=== PATIENT | male | born 1950 | race Caucasian/White ===

== ENCOUNTER 2023-08-14 01:44 | Day surgery (SDC) | payer OTHER, SELFPAY ==
[2023-08-02 08:58] VITALS: BMI 25.9
[2023-08-14 10:11] VITALS: BP 136/89; PULSE 86; RESP 18; TEMP 36.5; O2SAT 98
[2023-08-14] MEDS: LACTATED RINGERS 1,000 ML 150 ML IV CONT (10:23)
--- NOTE | 2023-08-14 10:47 | PM.HPGS ---
History of Present Illness History of Present Illness Consent: Risks, benefits, and alternatives have been discussed and questions answered. Patient agrees to proceed with procedure. Chief complaint: other fecal abnormalities Narrative: Corey Underwood Jr. is a 73 year old male here for first colonoscopy, had + cologuard Review of Systems Constitutional: Constitutional: Denies headache(s) and Denies weakness Eyes: Eyes: Denies blurry vision ENT: Reports Normal hearing present, Denies headache(s) and Denies neck pain Cardiovascular: Cardiovascular: Denies chest pain and Denies dyspnea Respiratory: Respiratory: Denies dyspnea Gastrointestinal: Gastrointestinal: Reports no additional gastrointestinal complaints Genitourinary: Genitourinary: Denies dysuria Musculoskeletal: Musculoskeletal: Denies neck pain Integumentary/Breasts: Skin/Breast: Denies dry skin Neurologic: Reports Normal hearing present, Denies headache(s) and Denies weakness Psychiatric: Psychiatric: Denies anxiety Endocrine: Endocrine: Denies change in body appearance Hematologic/Lymphatic: Hematologic/Lymphatic: Denies easy bleeding Allergic/Immunologic: Allergic/Immunologic: Denies urticaria PMFSH Past Medical History Medical History (Updated 08/14/23 @ 10:48 by Klaus Grewal MD) HTN (hypertension) Positive colorectal cancer screening using Cologuard test Family History Family History Father Family history of cardiovascular disease Other Diabetes mellitus Family history of arthritis Hypertension Social History Social History Smoking packs per day: 3 Smoking cigarettes per day: 60.0 Years smoked: 30 Smoking pack-years: 90.00 Smoking status: Former smoker Tobacco type: cigarettes Second hand tobacco smoke exposure: Yes Smoking end date: 10/15/01 Alcohol intake: current Substance use: never Substance use type: does not use Lack of Transportation: No Lack of Food: Never True Current Housing: I Have Housing Concerned About Future Housing: No Difficulty Paying Gas/Electric Bills: No Difficulty Paying for Meds: No Currently Unemployed: No Education: High School Diploma/GED Difficulty w/ Childcare or Family Care: No Living arrangements: with family Spiritual care concerns: No Meds Home Medications and Allergies Home Medications Medication Instructions Recorded Confirmed Type tramadol 50 mg tablet 50 mg PO Q6H PRN pain #60 tabs 11/16/22 10/19/23 Rx rosuvastatin 5 mg tablet See Rx Instructions .Route 04/03/23 08/02/23 Rx .COMPLEX #45 tabs meloxicam 7.5 mg tablet See Rx Instructions .Route 04/09/23 08/02/23 Rx .COMPLEX #180 tabs lisinopril 5 mg tablet See Rx Instructions .Route 04/19/23 08/02/23 Rx .COMPLEX #90 tabs meclizine 25 mg tablet 25 mg PO TID PRN Dizziness 05/29/23 08/02/23 History Glucosamine Chondroitin 1 cap PO DAILY 08/02/23 08/02/23 History rgtxqajh-zj-mmrax 300 mcg-K 60 1 tablet PO DAILY 08/02/23 08/02/23 History mcg-lycop 600 mcg-lutein 300 mcg tablet (Centrum Silver Men) naproxen sodium 220 mg capsule 220 mg PO BID PRN Pain 08/02/23 08/02/23 History (Aleve) omega 2-vyz-vjd-fish oil 1,000 mg 1 cap PO DAILY 08/02/23 08/02/23 History (120 mg-180 mg) capsule (Fish Oil) tamsulosin 0.4 mg capsule See Rx Instructions .Route 08/06/23 08/14/23 Rx .COMPLEX #90 caps Allergies Allergy/AdvReac Type Severity Reaction Status Date / Time ezetimibe [From Zetia] AdvReac Intermediate leg pain Verified 08/14/23 10:10 Walhlkp-CAO-WjL Reductase AdvReac Intermediate LEG PAIN Verified 08/14/23 10:10 Inhibitor [Vpoldbd-Gab-Qcg Reductase Inhibitor] Vital Signs Vital Signs - 24 hr 08/14/23 10:11 Temperature 97.7 F Pulse Rate 86 Respiratory Rate 18 Blood Pressure 136/89 Pulse Oximetry 98 Oxyge
--- NOTE | 2023-08-14 10:49 | WPDANESEPPF ---
Anes - Initial Pre Proc Eval Procedure: Operation Date: 08/14/23 11:00 Proposed Procedures p Colonoscopy - Klaus Grewal MD Date/Time: 08/14/23 10:49 Surgeon: Klaus Grewal MD Pre Op Diagnosis: other fecal abnormalities Patient Data Age: 73 Gender: M Height: 1.7 m Weight: 76.1 kg Last Vital Signs Temp 97.7 F 08/14/23 10:11 Pulse 86 08/14/23 10:11 Resp 18 08/14/23 10:11 BP 136/89 08/14/23 10:11 Pulse Ox 98 08/14/23 10:11 O2 Del Method Room Air 08/14/23 10:11 Allergies Allergy/AdvReac Type Severity Reaction Status Date / Time ezetimibe [From Zetia] AdvReac Intermediate leg pain Verified 08/14/23 10:10 Oyvqjtr-YWP-AdR Reductase AdvReac Intermediate LEG PAIN Verified 08/14/23 10:10 Inhibitor [Wxuydyk-Erd-Tqv Reductase Inhibitor] Home Medications Medication Instructions Recorded Confirmed Type tramadol 50 mg tablet 50 mg PO Q6H PRN pain #60 tabs 08/30/22 08/02/23 Rx rosuvastatin 5 mg tablet See Rx Instructions .Route 04/03/23 08/02/23 Rx .COMPLEX #45 tabs meloxicam 7.5 mg tablet See Rx Instructions .Route 04/09/23 08/02/23 Rx .COMPLEX #180 tabs lisinopril 5 mg tablet See Rx Instructions .Route 04/19/23 08/02/23 Rx .COMPLEX #90 tabs meclizine 25 mg tablet 25 mg PO TID PRN Dizziness 05/29/23 08/02/23 History Glucosamine Chondroitin 1 cap PO DAILY 08/02/23 08/02/23 History emacmjnu-da-hrgnp 300 mcg-K 60 1 tablet PO DAILY 08/02/23 08/02/23 History mcg-lycop 600 mcg-lutein 300 mcg tablet (Centrum Silver Men) naproxen sodium 220 mg capsule 220 mg PO BID PRN Pain 08/02/23 08/02/23 History (Aleve) omega 9-fcl-qiy-fish oil 1,000 mg 1 cap PO DAILY 08/02/23 08/02/23 History (120 mg-180 mg) capsule (Fish Oil) tamsulosin 0.4 mg capsule See Rx Instructions .Route 08/06/23 08/14/23 Rx .COMPLEX #90 caps Patient hx anesthesia problems: none Family hx anesthesia problems: none Results Review: All pre-operative results and documents have been reviewed as part of the pre-operative evaluation. [facility] Past Medical History Medical History (Updated 08/14/23 @ 10:48 by Klaus Grewal MD) HTN (hypertension) Positive colorectal cancer screening using Cologuard test Family History Family History Father Family history of cardiovascular disease Other Diabetes mellitus Family history of arthritis Hypertension Social History Social History Smoking packs per day: 3 Smoking cigarettes per day: 60.0 Years smoked: 30 Smoking pack-years: 90.00 Smoking status: Former smoker Tobacco type: cigarettes Second hand tobacco smoke exposure: Yes Smoking end date: 10/15/01 Alcohol intake: current Substance use: never Substance use type: does not use Lack of Transportation: No Lack of Food: Never True Current Housing: I Have Housing Concerned About Future Housing: No Difficulty Paying Gas/Electric Bills: No Difficulty Paying for Meds: No Currently Unemployed: No Education: High School Diploma/GED Difficulty w/ Childcare or Family Care: No Living arrangements: with family Spiritual care concerns: No Anes - Eval Final PreProcedure Day of Procedure 08/14/23 10:49 Patient weight: normal Heart: regular rate and rhythm Lungs: clear to auscultation Airway: Mallampati scale class II Neurological: alert and oriented Last oral intake: >/= 8 hours ASA classification: III Emergent: no Anesthetic plan: proceed Anesthesia type and monitoring: general GIVS and standard monitoring Results Review: All pre-operative results and documents have been reviewed as part of the pre-operative evaluation. Informed Consent: The patient's anesthetic plan and its attendant risks and benefits were discussed with the patient/family/POA. Questions were solicited and answe
[2023-08-14 11:24] VITALS: BP 93/63; PULSE 56; RESP 17; O2SAT 99
[2023-08-14 11:34] VITALS: BP 90/63; PULSE 57; RESP 16; O2SAT 99
[2023-08-14 11:44] VITALS: BP 101/68; PULSE 52; RESP 16; O2SAT 99
== END 2023-08-14 11:59 | disposition home or self-care (01) ==
PROVIDERS: PCP Emergency Medicine; Visit Provider Internal Medicine Gastroenterology
PROC: 0DJD8ZZ Inspection of Lower Intestinal Tract, Via Natural or Artificial Opening Endoscopic (ICD-10-PCS; CPT 45378; principal; 2023-08-14 11:00)
DX: D12.5 Benign neoplasm of sigmoid colon (principal); D12.2 Benign neoplasm of ascending colon; R19.5 Other fecal abnormalities; K57.30 Diverticulosis of large intestine without perforation or abscess without bleeding; K64.8 Other hemorrhoids; I10 Essential (primary) hypertension; Z87.891 Personal history of nicotine dependence
CPT/HCPCS: 45381; 45385; 88305; J2704; J7120

== ENCOUNTER 2024-06-20 10:06 | Outpatient (CLI) | payer OTHER, SELFPAY ==
--- NOTE | 2024-06-20 10:25 | EST_ITS ---
Patient Info Name: Corey Underwood Age: 74 years : 1950 Gender: Male Ht: 67 in Wt: 156 lbs BSA: 1.84 m2 Exam Date: 06/20/2024 10:49 AM Exam Location: Echo Lab Patient Status: Outpatient Admit Date: 06/20/2024 Staff Ordering Physician: Bib Walters MD Attending Provider: Bib Walters MD Exercise Technologist: Liane Winn [facility] Exercise Physician: Carlos Corona DO Exam Type: CA stress test treadmill Study Info Indications R06.00 - Dyspnea, unspecified A treadmill exercise stress test was performed. Summary 1. 1. Negative Joe exercise stress test for ischemic ST changes by ECG criteria. 2. 2. Poor functional capacity, achieving 4.6 METs of workload. 3. 3. Appropriate HR response to exercise. 4. 4. Appropriate HR recovery at 1 minute post exercise. 5. 5. No imaging with stress testing. 6. 6. Patient informed of the above results. Protocol: Joe Stress ECG Details Stage: REST Duration (min): 1 min : 39 sec Speed (mph): 0.0 Grade (%): 0 HR (bpm): 66 SBP (mmHg): 116 DBP (mmHg): 86 METS: --- Stage: REST Duration (min): 14 min : 18 sec Speed (mph): 0.0 Grade (%): 0 HR (bpm): 83 SBP (mmHg): 116 DBP (mmHg): 86 METS: --- Stage: STAGE 1 Duration (min): 1 min : 0 sec Speed (mph): 1.7 Grade (%): 10 HR (bpm): 111 SBP (mmHg): 116 DBP (mmHg): 86 METS: --- Stage: STAGE 1 Duration (min): 2 min : 0 sec Speed (mph): 1.7 Grade (%): 10 HR (bpm): 129 SBP (mmHg): 116 DBP (mmHg): 86 METS: --- Stage: STAGE 1 Duration (min): 2 min : 0 sec Speed (mph): 1.7 Grade (%): 10 HR (bpm): 130 SBP (mmHg): 116 DBP (mmHg): 86 METS: --- Stage: RECOVERY Duration (min): 0 min : 59 sec Speed (mph): 0.0 Grade (%): 0 HR (bpm): 105 SBP (mmHg): 169 DBP (mmHg): 90 METS: --- Stage: RECOVERY Duration (min): 1 min : 59 sec Speed (mph): 0.0 Grade (%): 0 HR (bpm): 87 SBP (mmHg): 169 DBP (mmHg): 90 METS: --- Stage: RECOVERY Duration (min): 2 min : 59 sec Speed (mph): 0.0 Grade (%): 0 HR (bpm): 80 SBP (mmHg): 170 DBP (mmHg): 88 METS: --- Stage: RECOVERY Duration (min): 3 min : 7 sec Speed (mph): 0.0 Grade (%): 0 HR (bpm): 73 SBP (mmHg): 170 DBP (mmHg): 88 METS: --- Rest HR: 83 bpm Peak HR: 133 bpm Rest Sys BP: 116 mmHg Peak Sys BP: 170 mmHg Max Pred HR: 146 bpm % Max Pred HR: 91 % Target HR: 124 bpm Max RPP: 22,610 bpm*mmHg Kim Score: -3 Termination Reason: Reached target heart rate or workload Cardiac Symptoms: Shortness of breath Max ST Seg Deviation: -1.00 mm Total Time: 2 min : 0 sec Rest Frederick BP: 86 mmHg Peak Frederick BP: 88 mmHg Angina Score: None Total METS: 4.6 Resting ECG Sinus rhythm. Stress ECG No ST changes. Arrhythmias None. Report Signatures
== END 2024-06-20 10:07 | disposition home or self-care (01) ==
PROVIDERS: PCP Emergency Medicine; Visit Provider Emergency Medicine
DX: R06.09 Other forms of dyspnea (principal)
CPT/HCPCS: 93017

== ENCOUNTER 2025-03-04 09:45 | Outpatient (RCR) | payer OTHER, SELFPAY ==
--- NOTE | 2025-02-16 10:55 | OPREHPOC ---
Outpatient Therapy Plan of Care This is a Multidisciplinary Plan of Care that may contain components documented by all disciplines (PT, OT, and ST.) PT Problem 1 PT Problem #1 Knowledge Deficit PT Goal 1 Goal / Goal Update *independent with HEP Target Visit 8 PT Problem 2 PT Problem #2 Impaired Strength PT Goal 1 Goal / Goal Update 1* increase strength of R and L LEs to 4+/5, to improve gait and mobility skills 2* single leg standing R and L x 6 seconds with good stability 3* pt have R and L heel strike with 2 minute walking test Target Visit 8 PT Problem 3 PT Problem #3 Impaired Functional Mobility PT Goal 1 Goal / Goal Update 1* up/down 12 steps with one hand railing and good control of motion, no loss of balance 2* Quevedo balance/ gait score of 52/56, to improve mobility and balance 3* 2 minute walking test distance of 475' 4* pt report walking time of 15 minutes, for fitness Target Visit 8
--- NOTE | 2025-02-16 10:55 | PTOPEVAL1 ---
Assessment and note entered by Bryanna Argueta, PT Evaluation Information Assessment Status Evaluation ICD-10 Condition Codes (PT) Difficulty Walking R26.2,Weakness R53.1 Onset August 2024 Subjective Information have leg weakness and problems with walking; have not had any falls, but loss of balance and catch self on furniture; history of back pain, knee pain, foot pain; L achilles tendon tear without surgery; problems on stairs- have to hold tight on the railing and feel like going to fall; activity: live alone in apartment, have 2 stories recent divorce and depressed- not done anything in the past year, but sat on couch; independent with self care and home tasks Reported Pain Level Pain Score 6: Self Report Additional Pain Score Comments chronic back pain; knee and ankle/foot pain bilateral Assessment PT Clinical Summary Corey has the diagnosis of weakness. He has not had any falls, but loses his balance and catches himself with his arms. Admits to sitting in the chair and not doing anything in the past year since his left him. And to having depression and not wanting to do anything. He is getting better, has given him some meds and he wants to get stronger. Medical history includes: chronic back pain, bilateral knee and foot/ankle pain. LE functional scale rating of 56% limitation in activity level. With the evaluation: poor gait pattern--with wide base of support, flat foot pattern, lateral trunk motion and knee and hip flexion; Quevedo balance score of 47/56; weakness of bilateral LE's, most weakness of hip abduction; 2 minute walking test distance of 425' with reports of SOB and tired. Skilled PT services are indicated for therapeutic exercises and activities to increase LE strength, gait and balance skills, with education for HEP and safety with mobility. Plan of Care Interventions Gait Training,Neuro Re-education,Patient/Caregiver Education,Therapeutic Activities,Therapeutic Exercise PT Services Indicated Yes Treatment Frequency and 1-2x/wk for 8 visits Duration These treatments will address the objective and functional deficits as defined above. The patient will be advanced safely and appropriately in order for the patient to progress towards his/her prior level of function. Additional exercises will be introduced and as well as a comprehensive home exercise program upon discharge, if needed, ?to ensure carryover of functional gains achieved in the clinic. This treatment plan has been reviewed and agreement upon by the patient.
--- NOTE | 2025-03-18 11:51 | PCPTNOTE ---
Cancelled d/t work conflict per front office. AKS
--- NOTE | 2025-04-08 12:34 | PCPTNOTE ---
pt did not show for today's reevaluation appt. Called and left voice message.
--- NOTE | 2025-04-15 14:43 | OPREHPOC ---
Outpatient Therapy Plan of Care This is a Multidisciplinary Plan of Care that may contain components documented by all disciplines (PT, OT, and ST.) PT Problem 1 PT Problem #1 Knowledge Deficit PT Goal 1 Goal / Goal Update *independent with HEP -12-09 d/c pt stopped attending goals not addressed Target Visit 8 PT Problem 2 PT Problem #2 Impaired Strength PT Goal 1 Goal / Goal Update 1* increase strength of R and L LEs to 4+/5, to improve gait and mobility skills 2* single leg standing R and L x 6 seconds with good stability 3* pt have R and L heel strike with 2 minute walking test -12-09 d/c pt stopped attending goals not addressed Target Visit 8 PT Problem 3 PT Problem #3 Impaired Functional Mobility PT Goal 1 Goal / Goal Update 1* up/down 12 steps with one hand railing and good control of motion, no loss of balance 2* Quevedo balance/ gait score of 52/56, to improve mobility and balance 3* 2 minute walking test distance of 475' 4* pt report walking time of 15 minutes, for fitness 25 d/c pt stopped attending goals not addressed Target Visit 8
--- NOTE | 2025-04-15 14:43 | PTOPDC ---
Assessment and note entered by Bryanna Argueta, PT Assessment Status Discharge - Pt Not Present ICD-10 Condition Codes (PT) Difficulty Walking R26.2,Weakness R53.1 Onset August 2024 Subjective Information pt was not seen this date. Assessment PT Clinical Summary Corey has received 3 PT treatments from February 16 to , for the diagnosis of malaise, weakness and decreased mobility. He then stopped attending therapy; therefore, he will be discharged at this time. The goals were not addressed. Plan of Care PT Services Indicated No
== END 2025-04-15 17:22 | disposition home or self-care (01) ==
LOC: ANHPT 09:45
PROVIDERS: PCP Emergency Medicine; Visit Provider Emergency Medicine
DX: R53.81 Other malaise (principal)
CPT/HCPCS: 97110; 97140; 97162; 97530

== ENCOUNTER 2025-08-26 15:08 | Emergency (ER) | payer OTHER, SELFPAY ==
[2025-08-26] VITALS (19 sets, daily range): BP systolic 101–139; BP diastolic 67–86; PULSE 52–80; RESP 12–23; TEMP 36.6; O2SAT 95–99
--- NOTE | ~2025-08-26 | CT_ITS ---
EXAMINATION: CT brain wo bisi, 08/26/2025 17:27 [employer] PATTERN[employer] HISTORY: weakness COMPARISON: No comparisons available. Technique: Axial images obtained of the brain without contrast. One or more of the following dose reduction techniques were used: automated exposure control, adjustment of the mA and/or kV according to patient size, use of iterative reconstruction technique. Findings: No acute infarct or parenchymal hemorrhage. No abnormal mass or mass effect. No midline shift. No extra-axial fluid collections. No hydrocephalus. Mastoid air cells unremarkable. Sinuses and orbits unremarkable. No acute fracture. No significant facial or scalp soft tissue swelling evident. No radiopaque foreign body is seen. Impression: 1.No acute intracranial abnormality. Reviewed, dictated and finalized at location [facility] Impression: 1.No acute intracranial abnormality.
--- NOTE | ~2025-08-26 | CT_ITS ---
CTA chest abdomen pelvis HISTORY:Abdominal pain, hsx infrarenal aortic stent . COMPARISON: None. TECHNIQUE: Following the noncontrasted russian rubber, axial images of the thorax, abdomen and pelvis were obtained following infusion of [100] cc of Isovue 370. Post-processing on an independent workstation was performed to reconstruct MIP images for evaluation of the aortic vasculature. Dose lowering technique and dose optimization was utilized. FINDINGS: CTA CHEST: The ascending and descending thoracic aorta are normal in caliber and patency. No dissection is evident. The aortic arch demonstrates normal branching pattern. The origins of the supra aortic vessels are patent. The pulmonary arteries demonstrate normal patency. CTA ABDOMEN AND PELVIS: The abdominal aorta, visceral vessels and renal arteries demonstrate no hemodynamically significant stenosis. 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 Prior repair with abdominal aortic biiliac endograft is in place. [The iliac and visualized femoral vessels are widely patent. No hemodynamically significant stenosis is noted. ] NONVASCULAR FINDINGS: [The lungs are clear.] [No pathologically enlarged mediastinal adenopathy is evident.] There is fatty infiltration of the liver. [No intrahepatic mass or ductal dilatation is evident.] [The gallbladder is unremarkable.] [The pancreas and spleen are normal in appearance.] [The adrenal glands are symmetric in size.] [The kidneys are unremarkable.] [ No intrarenal stones are noted.] [ There is no hydronephrosis.] [ ] [The stomach and bowel loops are unremarkable.] [The bladder and rectum are normal in appearance.] [ ] [ No free fluid or air is evident.] [There is no abdominal or pelvic lymphadenopathy.] [The thoracic and lumbar spines are unremarkable.] [The [No osseous lesion is identified.] Impression: Aneurysmal dilatation of the infrarenal abdominal aorta with prior placement of a aortic biiliac endograft. No endoleak is seen. The infrarenal abdominal aortic aneurysm measures 3.2 x [address] scans at this facility are performed using low dose modulation techniques as appropriate to perform exam including the following: automated exposure control; use of iterative reconstruction technique; adjustment of the mA and/or kV according to patient size (this includes techniques or standardized protocols for targeted exams where dose is matched to indication/reason for exam). Reviewed, dictated and finalized at location [facility] Impression: Aneurysmal dilatation of the infrarenal abdominal aorta with prior placement of a aortic biiliac endograft. No endoleak is seen. The infrarenal abdominal aortic aneurysm measures 3.2 x [address] scans at this facility are performed using low dose modulation techniqu es as appropriate to perform exam including the following: automated exposure c ontrol; use of iterative reconstruction technique; adjustment of the mA and/or kV according to patient size (this includes techniques or standardized protocol s for targeted exams where dose is matched to indication/reason for exam).
--- OUTSIDE RECORDS SUMMARY | 2025-08-26 15:55 | XMS_ITS | Clinical Summary ---
Author Organization [email or web address] Address [address] [place] [address] Care Team Providers Care Hvac Field Service Technician Name Role Phone Bib Walters MD Primary Care Provider [phone] Source Comments [facility],non-owned Affiliates and Associated Physician Practices is amultiple site organization consisting of ambulatory clinics and hospital sitesin [place], [place], [place] and [place]. This disclosure is being madepursuant to the Care Everywhere program and may not contain all information available regarding this patient. Last updated 18.[facility] Allergies No known active allergies Medications * Be aware that medications may not be up to date on this document. Alwaysverify current medications with the patient. aspirin (ASPIRIN) 81 MG chew tablet Take 81 mg by mouth DAILY. 11/23/2017 Active Misc Natural Products (OCTACOSANOL) 1000-5 MCG-UNIT Take by mouth. 11/20/2017 Active [place]-3 Fatty Acids (FISH OIL) 1000 MG capsule Take 1,000 mg by mouth 3 times daily with meals. 11/20/2017 Active tamsulosin (FLOMAX) 0.4 MG capsule 09/28/2017 Active lisinopril (PRINIVIL;ZESTRI L) 5 MG tablet 10/25/2017 Acti ve meloxicam (MOBIC) 7.5 MG tablet 11/01/2017 Active Black Pepper-Turmeric (TURMERIC COMPLEX/BLACK PEPPER PO) Take 500 mg by mouth once daily Active Active Problems Problem Noted Date Diagnosed Date Abdominal aortic aneurysm without rupture 2017 Social History Tobacco Use Types Packs/Day Years Used Date Smoking Tobacco: Former Cigarettes 0 Q uit: 11/20/2001 Smokeless Tobacco: Never Alcohol Use Standard Drinks/Week Comments No 0 (1 standard drink = 0.6 oz pur e alcohol) Sex and Gender Information Value Date Recorded Sex Assigned at Not on file Legal Sex Male 5:47 PM MARBLE SETTER Gender Identity Not on file Sexual Orientation Not on file Last Filed Vital Signs Vital Sign Reading Time Taken Comments Blood Pressure 125/68 06/05/2019 3:19 PM CDT Pulse 61 06/05/2019 3:19 PM CDT Temperature 37.5 C (99.5 F) 06/05/2019 3:19 PM CDT Respiratory Rate 25 11/24/2017 12:00 PM MARBLE SETTER Oxygen Saturation 98% 06/05/2019 3:19 PM CDT Inhaled Oxygen Concentration - - Weight 78.5 kg (173 lb) 06/05/2019 3:19 PM CDT Height 174 cm (5' 8.5) 06/05/2019 3:19 PM CDT Body Mass Index 25.92 06/05/2019 3:19 PM CDT Plan of Treatment Health Maintenance Due Date Last Done Comments COLOGUARD (AGES 45-75) - COL ON CA SCREENING 1950 COLON MONITORING 1950 COLONOSCOPY - COLON CA SCREENING 1950 CT COLONOGRAPHY - COLON CA SCREENING 1950 Colorectal Cancer Screening 1950 FIT - COLON CA SCREENING 1950 FLEX SIG - COLON CA SCREENING 1950 LIPID TESTING 1950 MEDICARE AWV 12 MONTHS 1950 Opioid Medication Agreement - Annual 1950 HEPATITIS C SCREENING 03/07/1968 DTAP/TDAP/TD VACCINES (1 - Tdap) 1969 PNEUMOCOCCAL VACCINE 50+ (1 of 1 - PCV) 2000 ZOSTER VACCINE (1 of 2) 2000 SCREENING FOR DIABETES 11/24/2020 8, 11/23/2017, 11/20/2017 DEPRESSION SCREENING 10/15/2024 Respiratory Syncytial Virus (RSV) Vaccine Pt: or over 60 yrs (1 - 1-dose 75+ series) 2025 COVID-19 VACCINE (1 - 2023-2 5 season) 2025 INFLUENZA VACCINE (#1) 2025 HEPATITIS B VACCINE Aged Out No longe r eligible based on patient's age to complete this topic HIB VACCINE Aged Out No longer eligi ble based on patient's age to complete this topic HPV VACCINE Aged Out No longer eligi ble based on patient's age to complete this topic MENINGOCOCCAL (Group B) VACCINE SHARED DECISION-MAKING Aged Out No longer eligible based on patient's age to complete this topic MENINGOCOCCAL GROUPS A/C/Y/W VACCINE Aged Out No longer eligible b ased on patient's age to complete this topic Procedures Procedure Name Priority Date/Time Associated Diagnosis Comments BASIC METABOLIC PANEL (CALCIUM TOTAL) Routine 11/24/2017 5:14 AM MARBLE SETTER from Last 3 Months or Most Recently Relevant to Health Maintenance Results * BASIC METABOLIC PANEL (CALCIUM TOTAL) (11/24/2017 5:14 AM MARBLE SETTER) BUN 13 7 - 26 mg/dL [facility] Creatinine 0.8 0.6 - 1.2 mg/dL [facility] Sodium 139 136 - 145 mmol/L [facility] Potassium 4.2 3.5 - 4.5 mmol/L [facility] Chloride 107 98 - 107 mmol/L [facility] CO2 22 22 - 29 mmol/L [facility] Glucose 111 70 - 115 mg/dL [facility] Calcium 8.6 8.4 - 10.2 mg/dL [facility] Anion Gap 14 8 - 18 [facility] BUN/Creatinine Ratio 16 7 - 23 [facility] Osmolality Calculated 289 270 - 300 mOsm/kg [facility] eGFR >60 >60 mL/min/1.[address] [facility] Blood specimen (specimen) BLOOD SPECIMEN / Unknown 11/24/2017 5:14 AM MARBLE SETTER 11/24/2017 5:56 AM MARBLE SETTER us Troy Hernandez MD LAB - CHEMISTRY ORDERABLES Fi nal Result [address] [phone] from Last 3 Months or Most Recently Relevant to Health Maintenance Insurance [facility] MEDICARE [employer] MED[employer]ARE [employer] MED[employer]ARE Care Teams Hvac Field Service Technician Relationship Specialty [place] [address] [place] [address] [address] [place] [phone] PCP - General 11/12/17
--- OUTSIDE RECORDS SUMMARY | 2025-08-26 15:55 | XMS_ITS | Patient Health Record ---
Author Organization [facility] [place] Address [address] [place] [address] Care Team Providers Care Delivery Manager Name Role Phone Bib Walters MD Primary Care Provider Unavail able Faviola Rodney Unavailable [phone] Allergies No Known Allergies Reason For Referral No Information Medications Medication SIG (Take, Route, Frequency, Duration) Notes Start Date End Date Status Ezetimibe 10 MG Tablet Oral; Duration: 90 Days Active Sertraline HCl 25 MG Tablet 1 tablet Ora lly Once a day; Duration: 90 days 03/02/2025 Active Meclizine HCl 25 MG Tablet Oral; Duration: 20 Days Active Tamsulosin HCl 0.4 MG Capsule Oral; Duration: 90 Days Acti ve Meloxicam 7.5 MG Tablet Oral; Duration: 30 Days Active diazePAM 2 MG Tablet Oral; Duration: 30 Days Active Rosuvastatin Calcium 10 MG Tablet Oral; Duration: 90 Days Acti ve Lisinopril 10 MG Tablet Oral; Duration: 90 Days Active Social History Tobacco Use: Social History Observation Description Date Details (start date - stop date) Never Smoker NA - NA Sex Assigned At : Social History Observation Description Sex Assigned At Male Social History Miscellaneous: Social Info Question Answer Notes Advance Care Planning Advance Directive FULL CODE Social History Social Info Question Answer Notes Household: Marital Status: Number of Adults in household: 1 Number of Children in Household: 0 Level of Education: Not Finished College Drug/Alcohol: Social Info Question Answer Notes AUDIT-C (Standard) Did you have a drink containing alcohol in the past year? Yes How often did you have a drink containing alcohol in the past year? 2 to 4 times a month (2 points) Tobacco Use: Social Info Question Answer Notes Tobacco Control (Standard) Tobacco use: Nonsmoker Additional Details Category Social Info Options Details Miscellaneous: Occupation: retired Problems Problem Type SNOMED Code ICD Code Onset Dates Problem Status W/U Status Risk Notes Problem Moderate recurrent major depression (84246904) Moderate episode of recurrent major depressive disorder (F33.1) Active confirmed Problem Generalized anxiety disorder (87557875) DIMA (generalized anxiety disorder) (F41.1) Active confirmed Vital Signs Heart Rate 90 /min 02/25/2025 Blood pressure diastolic 86 mm Hg 02/25/2025 Weight-kg 73.03 kg 02/25/2025 Blood pressure systolic 152 mm Hg 02/25/2025 Weight 161 lbs 02/25/2025 Encounters Encounter Location Date Provider Diagnosis [address] [address] 02/25/2025 Faviola Rodney Moderate episode of recurrent major depressive disorder F33.1 ; DIMA (generalized anxiety disorder) F41.1 ; Encounter for screening for depression Z13.31 and Benign essential HTN I10 [address] [address] 03/02/2025 Faviolachey Rodney Moderate episode of recurrent major depressive disorder F33.[address] [address] 03/05/2025 Faviola Rodney [address] [address] 03/25/2025 Faviola Kurnahid [address] [address] 03/30/2025 Faviolachey Rodney [address] [address] 02/25/2025 Faviolachey Rodney Assessments Encounter Date Diagnosis (ICD Code) Assessment Notes Treatment Notes Treatment Clinical Notes Section Notes 02/25/2025 Moderate episode of recurrent major depressive disorder (ICD-10 - F33.1) SSRI/SNRI side effects discussed including but not limited to, gastric upset, nausea, vomiting, diarrhea and/or constipation, weight changes, sexual side effects including loss of libido, increased suicidal thoughts/behavi ors in children and young adults, and serotonin syndrome. 02/25/2025 DIMA (generalized anxiety disorder) (ICD-10 - F41.1) 03/02/2025 Moderate episode of recurrent major depressive disorder (ICD-10 - F33.1) 02/25/2025 Encounter for screening for depression (ICD-10 - Z13.31) 02/25/2025 Benign essential HTN (ICD-10 - I10) 02/25/2025 Other Start duloxetine 20mg daily for anxiety, depression. Continue diazepam per PCP, discussed manager long term care use not recommended, avoid alcohol consumption with medication. Encouraged limiting alcohol use due to worsening depression and anxiety. Patient educated on all medications including potential benefits, side effects, risks. Educated on proper dosing schedule and importance of compliance. Referred to therapy for additional support -Assessment and treatment plan reviewed with patient. -Compliance with treatment plan importance discussed. -Discussed the risks/benefits of this medication -Discussed medication side effects. -Contact office if symptoms worsen. -Discussed that it can take up to 6-8 weeks to see full therapeutic effects of psychotropic medications. -Crisis prevention hotline 378. Plan Of Treatment No Information Insurance Providers Payer Name Payer Address Payer Phone Subscriber Number Group Number Insured Name Patient Relationship to Insured Coverage Start Date Coverage End Date [facility] Medicare Replacement/ Advantage - [employer]mo [address] [place] [address] [id number] Corey Underwood Self - patient is the insured Medical (General) History Medical History History ICD Code HTN Dyspnea on exertion
--- OUTSIDE RECORDS SUMMARY | 2025-08-26 15:55 | XMS_ITS | Clinical Summary ---
Author Organization [facility] Address [address] [place] [address] Care Team Providers Care Specialty Trimmer Name Role Phone Unavailable Primary Care Provider Unavailabl e Social History Tobacco Use Types Packs/Day Years Used Date Smoking Tobacco: Never Assessed Sex and Gender Information Value Date Recorded Sex Assigned at Not on file Legal Sex Male 7:46 PM CDT Gender Identity Not on file Sexual Orientation Not on file Plan of Treatment Health Maintenance Due Date Last Done Comments Colorectal Cancer Screening Colonoscopy (10 Years) 1950 Hepatitis C 1968 DTaP, Tdap and Td Vaccines ( 1 - Tdap) 1969 Pneumococcal Vaccine: 50+ Ye ars (1 of 1 - PCV) 2000 Zoster Vaccines (1 of 2) 2000 RSV Immunization or 60+ Years (1 - 1-dose 75+ series) 2025 COVID-19 Vaccine ( - 2024-2 6 season) 2025 Influenza Adult (#1) 2025 Hepatitis A Vaccines Aged Out No long er eligible based on patient's age to complete this topic Meningococcal B Vaccine Aged Out No l onger eligible based on patient's age to complete this topic Meningococcal Vaccine Aged Out No sen dallin eligible based on patient's age to complete this topic RSV Immunizations Under 20 Months Aged Out No longer eligible based on patient's age to complete this topic
--- NOTE | 2025-08-26 16:37 | ED.GENADULT ---
HPI - General Adult General Chief complaint: Unspecified <Rachelle Mack PA-C - Last Filed: 08/27/25 09:16> Stated complaint: plethora of complaints <Rachelle Mack PA-C - Last Filed: 08/27/25 09:16> Time Seen by Provider: 08/26/25 16:37 <Rachelle Mack PA-C - Last Filed: 08/27/25 09:16> Focused HPI: This is a 75 year old male that presents to the ER for epigastric pain. Reports it feels like someone is stabbing him. Reports he has been having trouble walking, off balance, has had a lot of falls. Reports he lays in bed for 12 hours a day. Reports he has been drinking a lot of beer, but stopped a couple of weeks ago. He has been taking Valium to try to help with the pain. GENERAL: Well-appearing, well-nourished, and in no acute distress. HEAD: Normocephalic, atraumatic. CHEST: Clear to auscultation. ?No respiratory distress. HEART: Regular rate and rhythm.? NEURO: ?Alert and oriented x3. Patient screened in triage and initial orders placed.? ?Additional care and disposition to be based upon?diagnostic testing and treatment. <Rachelle Mack PA-C - Last Filed: 08/27/25 09:16> History of Present Illness HPI narrative: I agree with the above HPI <Eleuterio Garay MD - Last Filed: 08/26/25 21:53> Related Data Home medications: Home Medications ?Medication ?Instructions ?Recorded ?Confirmed ?Last Taken ?Type Glucosamine Chondroitin 1 cap PO DAILY 08/02/23 01/30/25 08/12/23 History qiexiazk-le-fygdz 300 mcg-K 60 1 tablet PO DAILY 08/02/23 01/30/25 08/12/23 History mcg-lycop 600 mcg-lutein 300 mcg tablet (Centrum Silver Men) omega 2-fhp-sne-fish oil 1,000 mg 1 cap PO DAILY 08/02/23 01/30/25 08/12/23 History (120 mg-180 mg) capsule (Fish Oil) <Rachelle Mack PA-C - Last Filed: 08/27/25 09:16> Allergies/adverse reactions: Allergies Allergy/AdvReac Type Severity Reaction Status Date / Time buspirone Allergy Severe Nausea and Verified 08/26/25 18:17 Vomiting bupropion (From Wellbutrin) Allergy Intermediate Nausea Verified 08/26/25 18:17 citalopram AdvReac Intermediate Abdominal Verified 08/26/25 18:17 Pain <Rachelle Mack PA-C - Last Filed: 08/27/25 09:16> Review of Systems Review of Systems: All systems reviewed & are unremarkable except as noted in HPI and below <Eleuterio Garay MD - Last Filed: 08/26/25 21:53> [facility] Past Medical History Medical History: Medical History Dyspnea on exertion Positive colorectal cancer screening using Cologuard test HTN (hypertension) <Rachelle Mack PA-C - Last Filed: 08/27/25 09:16> Family History Family History: Family History Father Family history of cardiovascular disease Other Diabetes mellitus Family history of arthritis Hypertension <Rachelle Mack PA-C - Last Filed: 08/27/25 09:16> Social History Social History: Social History Smoking packs per day: 3 Smoking cigarettes per day: 60.0 Years smoked: 30 Smoking pack-years: 90.00 Smoking status: Former smoker Tobacco type: cigarettes Second hand tobacco smoke exposure: Yes Smoking end date: 10/15/01 Alcohol intake: current Substance use: current Substance use type: marijuana Do You Feel Safe in your Home?: Yes Lack of Transportation: No Lack of Food: Never True Current Housing: I Have Housing Concerned About Future Housing: No Difficulty Paying Gas/Electric Bills: No Difficulty Paying for Meds: No Currently Unemployed: No Education: Don't Know Difficulty w/ Childcare or Family Care: No Living arrangements: with family Gender identity (if verbalized by the patient): Male Sexual Orientation (if Verbalized by the Patient): Straight or Heterosexual Spiritual care concerns: No <Rachelle Mack PA-C - Last Filed: 08/27/25 09:16> Exam Narrative: APPEARANCE: Well appearing, no pain, no distress, well-nourished. HEAD: normocephalic, atraumatic. EYES: PERRLA/EOMI, conjunctivae clear. NOSE: Normal no drainage EARS:TMS clear with good light reflex. THROAT: Pharynx clear, no exudate. NECK: Supple. No adenopathy, no masses. RESPIRATORY: Airway patent, respirations nonlabored. Clear to auscultation bilaterally, no rales, rhonchi, wheezing. CARDIOVASCULAR: Regular rate and rhythm without murmurs rubs or gallops. ABDOMINAL: epigastric tenderness to palpation MUSCULOSKELETAL: Moves all extremities. Strength/ROM intact, No edema, No calf tenderness. NEURO: Alert. Cranial nerves II through XII intact. Good gait. Good coordination SKIN: Warm, dry. Normal Color PSYCHIATRIC: depressed affect <Eleuterio Garay MD - Last Filed: 08/26/25 21:53> Course Vital Signs Vital signs: Vital Signs Temperature 97.8 F 08/26/25 16:29 Pulse Rate 80 08/26/25 16:29 Respiratory Rate 16 08/26/25 16:29 Blood Pressure 139/76 08/26/25 16:29 Pulse Oximetry 99 08/26/25 16:29 Temperature 97.8 F 08/26/25 16:29 Pulse Rate 60 08/26/25 20:18 Respiratory Rate 12 08/26/25 20:18 Blood Pressure 114/86 08/26/25 20:17 Pulse Oximetry 98 08/26/25 20:18 <Rachelle Mack PA-C - Last Filed: 08/27/25 09:16> Vital Signs Temperature 97.8 F 08/26/25 16:29 Pulse Rate 80 08/26/25 16:29 Respiratory Rate 16 08/26/25 16:29 Blood Pressure 139/76 08/26/25 16:29 Pulse Oximetry 99 08/26/25 16:29 Temperature 97.8 F 08/26/25 16:29 Pulse Rate 60 08/26/25 20:18 Respiratory Rate 12 08/26/25 20:18 Blood Pressure 114/86 08/26/25 20:17 Pulse Oximetry 98 08/26/25 20:18 <Eleuterio Garay MD - Last Filed: 08/26/25 21:53> Medical Decision Making MDM Narrative Medical decision making narrative: 75-year-old male present to the emergency department for evaluation for epigastric abdominal pain. Patient is currently afebrile with no leukocytosis hemoglobin 14.0. INR 1.0. Patient had no acute abnormalities on his CMP and patient had negative lipase. Patient does have history of infrarenal aortic aneurysms with previous surgical repair. CTA showed no change in size the aneurysm and no active endoleak. Patient was treated for gastritis with a GI cocktail and IV Protonix and on re-evaluation patient states his symptoms are completely resolved. Patient states he had been drinking alcohol daily up until about a week ago. Patient also does admit to THC use. Patient was encouraged to refrain from both THC and alcohol and to have close follow-up with a counselor due to his persistent depression secondary to his divorce. <Eleuterio Garay MD - Last Filed: 08/26/25 21:53> Differential Diagnosis Differential Diagnosis: endoleak, abdominal aortic aneurysm, gastritis esophagitis, colitis, diverticulitis <Eleuterio Garay MD - Last Filed: 08/26/25 21:53> Vital Signs Vital Signs: Vital Signs Temperature 97.8 F 08/26/25 16:29 Pulse Rate 80 08/26/25 16:29 Respiratory Rate 16 08/26/25 16:29 Blood Pressure 139/76 08/26/25 16:29 Pulse Oximetry 99 08/26/25 16:29 Temperature 97.8 F 08/26/25 16:29 Pulse Rate 60 08/26/25 20:18 Respiratory Rate 12 08/26/25 20:18 Blood Pressure 114/86 08/26/25 20:17 Pulse Oximetry 98 08/26/25 20:18 <Rachelle Mack PA-C - Last Filed: 08/27/25 09:16> Vital Signs Temperature 97.8 F 08/26/25 16:29 Pulse Rate 80 08/26/25 16:29 Respiratory Rate 16 08/26/25 16:29 Blood Pressure 139/76 08/26/25 16:29 Pulse Oximetry 99 08/26/25 16:29 Temperature 97.8 F 08/26/25 16:29 Pulse Rate 60 08/26/25 20:18 Respiratory Rate 12 08/26/25 20:18 Blood Pressure 114/86 08/26/25 20:17 Pulse Oximetry 98 08/26/25 20:18 <Eleuterio Garay MD - Last Filed: 08/26/25 21:53> Lab Data Lab results reviewed: Yes I reviewed the patient's lab results. <Eleuterio Garay MD - Last Filed: 08/26/25 21:53> Result diagrams: 08/26/25 18:19 08/26/25 18:19 <Rachelle Mack PA-C - Last Filed: 08/27/25 09:16> Labs: Lab Results 08/26/25 08/26/25 Range/Units 18:19 19:19 WBC 6.9 (4.5-10.0) K/mm3 RBC 4.18 L (4.6-6.20) M/mm3 Hgb 14.0 (14.0-18.0) g/dL Hct 40.6 L (42.0-52.0) % MCV 97.1 (80-100) fl MCH 33.5 (26-34) pg MCHC 34.5 (32-36) g/dl RDW 12.4 (11.5-14.5) % Plt Count 249 (150-375) k/mm3 MPV 9.2 (7.4-10.4) fl Immature Gran % (Auto) 0.1 (0-0.5) % Neut % (Auto) 67.5 (45.5-73.1) % Lymph % (Auto) 19.1 (18.3-44.2) % [place] % (Auto) 12.3 H (2.6-8.5) % Eos % (Auto) 0.6 (0-4.4) % Baso % (Auto) 0.4 (0.2-1.2) % Lymph # (Auto) 1.31 (0.9-3.2) K/mm3 [place] # (Auto) 0.8 H (0.1-0.6) K/mm3 Eos # (Auto) 0.0 (0-0.3) K/mm3 Baso # (Auto) 0.0 (0.0-0.1) K/mm3 Abs Immat Gran (auto) 0.01 (0.00-0.031) K/mm3 Absolute Neuts (auto) 4.6 (1.3-6.7) K/mm3 Absolute Nucleated RBC 0.000 (0.0-0.012) K/mm3 Nucleated RBC % 0.0 (0.0-0.2) % PT 13.6 (11.1-14.7) Seconds INR 1.0 APTT 27.7 (22.3-36.8) Seconds Sodium 140 (137-145) mmol/L Potassium 3.7 (3.4-5.0) mmol/L Chloride 107 (98-107) mmol/L Carbon Dioxide 28 (22-30) mmol/L Anion Gap 5 (4-12) mmol/L BUN 27 H (9-20) mg/dL Creatinine 1.17 (0.7-1.3) mg/dL Estim Creat Clear Calc 45 ml/min Estimated GFR > 60 (59 - ) Glucose 124 H (65-110) mg/dL Calcium 9.2 (8.4-10.2) mg/dL Total Bilirubin 0.8 (0.2-1.3) mg/dL AST 39 (17-59) U/L ALT 21 (6-50) U/L Alkaline Phosphatase 83 (38-126) U/L Total Protein 6.8 (6.3-8.2) g/dL Albumin 3.9 (3.5-5.1) g/dL Lipase 72 (23-300) U/L Urine Color Dark yellow (Yellow) Urine Appearance Clear (Clear) Urine pH 5.0 (5.0-9.0) Ur Specific [place] 1.028 (1.001-1.035) Urine Protein 1+ H (Negative) mg/dL Urine Glucose (UA) Negative (Negative) mg/dL Urine Ketones 2+ H (Negative) mg/dL Ur Blood (Man) Negative (Negative) Urine Nitrate Negative (Negative) Urine Bilirubin Negative (Negative) Urine Urobilinogen 1.0 (<2.0) mg/dL Leukocyte Esterase Rfl Negative (Negative) HELLEN/UL Urine RBC 0-2 (0-2) /hpf Urine WBC 0-5 (0-3) /hpf Ur Squamous Epith Cells None seen (Few) /hpf Calcium Oxalate Crystal Present (None) /hpf Urine Bacteria None seen /hpf Urine Casts 0-2 Ethyl Alcohol < 10 (<10) mg/dL <Rachelle Mack PA-C - Last Filed: 08/27/25 09:16> Lab Results 08/26/25 08/26/25 Range/Units 18:19 19:19 WBC 6.9 (4.5-10.0) K/mm3 RBC 4.18 L (4.6-6.20) M/mm3 Hgb 14.0 (14.0-18.0) g/dL Hct 40.6 L (42.0-52.0) % MCV 97.1 (80-100) fl MCH 33.5 (26-34) pg MCHC 34.5 (32-36) g/dl RDW 12.4 (11.5-14.5) % Plt Count 249 (150-375) k/mm3 MPV 9.2 (7.4-10.4) fl Immature Gran % (Auto) 0.1 (0-0.5) % Neut % (Auto) 67.5 (45.5-73.1) % Lymph % (Auto) 19.1 (18.3-44.2) % [place] % (Auto) 12.3 H (2.6-8.5) % Eos % (Auto) 0.6 (0-4.4) % Baso % (Auto) 0.4 (0.2-1.2) % Lymph # (Auto) 1.31 (0.9-3.2) K/mm3 [place] # (Auto) 0.8 H (0.1-0.6) K/mm3 Eos # (Auto) 0.0 (0-0.3) K/mm3 Baso # (Auto) 0.0 (0.0-0.1) K/mm3 Abs Immat Gran (auto) 0.01 (0.00-0.031) K/mm3 Absolute Neuts (auto) 4.6 (1.3-6.7) K/mm3 Absolute Nucleated RBC 0.000 (0.0-0.012) K/mm3 Nucleated RBC % 0.0 (0.0-0.2) % PT 13.6 (11.1-14.7) Seconds INR 1.0 APTT 27.7 (22.3-36.8) Seconds Sodium 140 (137-145) mmol/L Potassium 3.7 (3.4-5.0) mmol/L Chloride 107 (98-107) mmol/L Carbon Dioxide 28 (22-30) mmol/L Anion Gap 5 (4-12) mmol/L BUN 27 H (9-20) mg/dL Creatinine 1.17 (0.7-1.3) mg/dL Estim Creat Clear Calc 45 ml/min Estimated GFR > 60 (59 - ) Glucose 124 H (65-110) mg/dL Calcium 9.2 (8.4-10.2) mg/dL Total Bilirubin 0.8 (0.2-1.3) mg/dL AST 39 (17-59) U/L ALT 21 (6-50) U/L Alkaline Phosphatase 83 (38-126) U/L Total Protein 6.8 (6.3-8.2) g/dL Albumin 3.9 (3.5-5.1) g/dL Lipase 72 (23-300) U/L Urine Color Dark yellow (Yellow) Urine Appearance Clear (Clear) Urine pH 5.0 (5.0-9.0) Ur Specific [place] 1.028 (1.001-1.035) Urine Protein 1+ H (Negative) mg/dL Urine Glucose (UA) Negative (Negative) mg/dL Urine Ketones 2+ H (Negative) mg/dL Ur Blood (Man) Negative (Negative) Urine Nitrate Negative (Negative) Urine Bilirubin Negative (Negative) Urine Urobilinogen 1.0 (<2.0) mg/dL Leukocyte Esterase Rfl Negative (Negative) HELLEN/UL Urine RBC 0-2 (0-2) /hpf Urine WBC 0-5 (0-3) /hpf Ur Squamous Epith Cells None seen (Few) /hpf Calcium Oxalate Crystal Present (None) /hpf Urine Bacteria None seen /hpf Urine Casts 0-2 Ethyl Alcohol < 10 (<10) mg/dL <Eleuterio Garay MD - Last Filed: 08/26/25 21:53> Imaging Data Radiologist's impression: Impressions Head CT 08/26/25 17:38 Impression: 1.No acute intracranial abnormality. Chest/Abdomen/Pelvis CTA 08/26/25 19:21 Impression: Aneurysmal dilatation of the infrarenal abdominal aorta with prior placement of a aortic biiliac endograft. No endoleak is seen. The infrarenal abdominal aortic aneurysm measures 3.[address] scans at this facility are performed using low dose modulation techniques as appropriate to perform exam including the following: automated exposure control; use of iterative reconstruction technique; adjustment of the mA and/or kV according to patient size (this includes techniques or standardized protocols for targeted exams where dose is matched to indication/reason for exam). <Eleuterio Garay MD - Last Filed: 08/26/25 21:53> Critical Care Time Critical Care Time Critical Care Time: No <Rachelle Mack PA-C - Last Filed: 08/27/25 09:16> Discharge Plan Discharge Clinical Impression: Depression Qualifiers: Depression Type: unspecified Qualified Code(s): F32.A - Depression, unspecified Gastritis Qualifiers: Gastritis type: unspecified gastritis Chronicity: acute Gastritis bleeding: without bleeding Qualified Code(s): K29.00 - Acute gastritis without bleeding <Rachelle Mack PA-C - Last Filed: 08/27/25 09:16> Patient Disposition: Home <Rachelle Mack PA-C - Last Filed: 08/27/25 09:16> Condition: Stable <Rachelle Mack PA-C - Last Filed: 08/27/25 09:16> Instructions: Antibiotic Form <Rachelle Mack PA-C - Last Filed: 08/27/25 09:16> Additional Instructions: Avoid alcohol and avoid NSAIDs. Take omeprazole as directed for the next 14 days. Have close follow-up with GI. Have close follow-up with outpatient psychiatric counseling. If you have any worsening symptoms or if you do not feel safe at home please call or return to the emergency department. <Rachelle Mack PA-C - Last Filed: 08/27/25 09:16> Patient Language: Ukrainian <Rachelle Mack PA-C - Last Filed: 08/27/25 09:16> Prescriptions: New omeprazole 20 mg capsule,delayed release(DR/EC) 20 mg PO DAILY 14 Days Qty: 14 0RF ondansetron 4 mg tablet,disintegrating 4 mg PO Q8H PRN (Reason: nausea and vomiting) Qty: 14 0RF No Action omega 5-ogj-hwr-fish oil [Fish Oil] 1,000 mg (120 mg-180 mg) Capsule 1 cap PO DAILY Centrum Silver Men [phone] mcg Tablet 1 tablet PO DAILY Glucosamine Chondroitin 1 cap PO DAILY (DME) shoe inserts See Rx Instructions .Route .MEDSUPPLY Qty: 1 0RF Rx Instructions: As directed tamsulosin 0.4 mg capsule See Rx Instructions .ROUTE .COMPLEX Qty: 90 2RF Dose Instruction: TAKE 1 CAPSULE BY MOUTH ONCE DAILY 1/2 HOUR FOLLOWING THE SAME MEAL EACH DAY Rx Instructions: TAKE 1 CAPSULE BY MOUTH ONCE DAILY 1/2 HOUR FOLLOWING THE SAME MEAL EACH DAY rosuvastatin [Crestor] 10 mg tablet 10 mg PO DAILY Qty: 90 2RF lisinopril 10 mg tablet See Rx Instructions .ROUTE .COMPLEX Qty: 90 2RF Dose Instruction: TAKE 1 TABLET BY MOUTH DAILY Rx Instructions: TAKE 1 TABLET BY MOUTH DAILY diazepam [Valium] 2 mg tablet 2 mg PO BID PRN (Reason: anxiety) Qty: 60 0RF ezetimibe [Zetia] 10 mg tablet 10 mg PO DAILY Qty: 90 2RF meclizine 25 mg tablet See Rx Instructions .ROUTE .COMPLEX Qty: 60 2RF Dose Instruction: TAKE 1 TABLET BY MOUTH THREE TIMES A DAY NEEDED FOR DIZZINESS Rx Instructions: TAKE 1 TABLET BY MOUTH THREE TIMES A DAY NEEDED FOR DIZZINESS meloxicam 7.5 mg tablet See Rx Instructions .ROUTE .COMPLEX Qty: 180 2RF Dose Instruction: TAKE 1 TABLET BY MOUTH TWICE A DAY Rx Instructions: TAKE 1 TABLET BY MOUTH TWICE A DAY <Rachelle Mack PA-C - Last Filed: 08/27/25 09:16> Follow-up/Referrals: Bib Walters MD [Primary Care Provider, Internal Medicine] Klaus Grewal MD [Physician, Gastroenterology] <Rachelle Mack PA-C - Last Filed: 08/27/25 09:16>
--- NOTE | 2025-08-26 16:38 | ECG_ITS ---
Test Date: 2025-08-26 17:42:27 Measurements Intervals [place] Rate: 56 P: 54 [place]: 135 QRS: 28 QRSD: 97 T: 36 QT: 446 QTc: 431 Interpretive Statements SINUS BRADYCARDIA No previous ECG available for comparison Electronically Signed On 08-26-2025 22:32:37 METAL TESTER by Tad Garcia D.O
--- OUTSIDE RECORDS SUMMARY | 2025-08-26 16:43 | XMS_ITS | Clinical Summary ---
Author Organization [facility] Address [address] [place] [address] Care Team Providers Care Rate Setter Name Role Phone Unavailable Primary Care Provider [...]
--- OUTSIDE RECORDS SUMMARY | 2025-08-26 16:43 | XMS_ITS | Clinical Summary ---
Author Organization [facility] Address [address] [place] [address] Care Team Providers Care Senior Copywriter Name Role Phone Bib Walters MD Primary Care Provider [phone] Source Comments [facility],non-owned Affiliates and Associated Physician Practices is amultiple site organization consisting of ambulatory clinics and hospital sitesin [place], [place], [place] and [place]. This disclosure is being madepursuant to the Care Everywhere program and may not contain all information available regarding this patient. Last updated 18.[facility] Allergies No known active allergies Medications * Be aware that medications may not be up to date on this document. Alwaysverify current medications with the patient. aspirin (ASPIRIN) 81 MG chew tablet Take 81 mg by mouth DAILY. 11/23/2017 Active Misc Natural Products (OCTACOSANOL) 1000-5 MCG-UNIT Take by mouth. 11/20/2017 Active [place]-3 Fatty Acids (FISH OIL) 1000 MG capsule [...] on file Legal Sex Male 5:47 PM [employer] Gender Identity Not on file Sexual Orientation Not on file Last Filed Vital Signs Vital Sign Reading Time Taken Comments Blood Pressure 125/68 06/05/2019 3:19 PM CDT Pulse 61 06/05/2019 3:19 PM CDT Temperature 37.5 C (99.5 F) 06/05/2019 3:19 PM CDT Respiratory Rate 25 11/24/2017 12:00 PM WO[facility]WYER Oxygen Saturation 98% 06/05/2019 3:19 PM CDT [...] PANEL (CALCIUM TOTAL) Routine 11/24/2017 5:14 AM WOOD SAWYER from Last 3 Months or Most Recently Relevant to Health Maintenance Results * BASIC METABOLIC PANEL (CALCIUM TOTAL) (11/24/2017 5:14 AM WOOD SAWYER) BUN 13 7 - 26 mg/dL [facility] Creatinine 0.8 0.6 - 1.2 mg/dL [facility] Sodium 139 136 - 145 mmol/L [facility] Potassium 4.2 3.5 - 4.5 mmol/L [facility] Chloride 107 98 - 107 mmol/L [facility] CO2 22 22 - 29 mmol/L [facility] Glucose 111 70 - 115 mg/dL [facility] Calcium 8.6 8.4 - 10.2 mg/dL [facility] Anion Gap 14 8 - 18 [facility] BUN/Creatinine Ratio 16 7 - 23 [facility] Osmolality Calculated 289 270 - 300 mOsm/kg [facility] eGFR >60 >60 mL/min/1.7 3 m2 [facility] Blood specimen (specimen) BLOOD SPECIMEN / Unknown 11/24/2017 5:14 AM WOOD SAWYER 11/24/2017 5:56 AM WOOD SAWYER us Troy Hernandez MD LAB - CHEMISTRY ORDERABLES Fi nal Result [address] [phone] from Last 3 Months or Most Recently Relevant to Health Maintenance Insurance [facility] MEDICARE [employer] MED[employer]ARE [employer] MED[employer] Care Teams Senior Copywriter Relationship Specialty [place] [address] [place] [address] [address] [place] [id number] PCP - General 11/12/17
[2025-08-26 18:26] LABS: Hematocrit 40.6 % (42.0-52.0); Hemoglobin 14.0 g/dL (14.0-18.0); Immature Granulocyte Percent A 0.1 % (0-0.5); Lymphocytes Absolute Auto 1.31 K/mm3 (0.9-3.2); Mean Corpuscular HGB Conc 34.5 g/dl (32-36); Mean Corpuscular Hemoglobin 33.5 pg (26-34); Mean Corpuscular Volume 97.1 fl (80-100); Nucleated Red Blood Cells Absolute Auto 0.000 K/mm3 (0.0-0.012); Nucleated Red Blood Cells Perc 0.0 % (0.0-0.2); Platelet Count Result 249 k/mm3 (150-375); Red Blood Count 4.18 M/mm3 (4.6-6.20); White Blood Count 6.9 K/mm3 (4.5-10.0)
[2025-08-26 18:37] LABS: Alanine Aminotransferase 21 U/L (6-50); Albumin Level 3.9 g/dL (3.5-5.1); Alkaline Phosphatase 83 U/L (38-126); Anion Gap 5 mmol/L (4-12); Aspartate Amino Transferase 39 U/L (17-59); Bilirubin,Total 0.8 mg/dL (0.2-1.3); Blood Urea Nitrogen 27 mg/dL (9-20); Calcium 9.2 mg/dL (8.4-10.2); Carbon Dioxide 28 mmol/L (22-30); Chloride 107 mmol/L (98-107); Estimated CRCL calculation 45 ml/min; Estimated Glomerular Filt Rate > 60; Glucose 124 mg/dL (65-110); Lipase 72 U/L (23-300); Potassium 3.7 mmol/L (3.4-5.0); Sodium 140 mmol/L (137-145); Total Protein 6.8 g/dL (6.3-8.2)
[2025-08-26 18:39] LABS: INR 1.0; Prothrombin Time 13.6 Seconds (11.1-14.7)
[2025-08-26 18:40] LABS: Partial Thromboplastin Time 27.7 Seconds (22.3-36.8)
[2025-08-26] MEDS: PANTOPRAZOLE SODIUM IV 40 MG VIAL IV PUSH (19:15)
[2025-08-26] MEDS: BELLADONNA ALK/PHENOB ELIX 10 ML, MAG HYDROX/ALUMINUM HYD/SIMETH 30 ML, LIDOCAINE 2% VI... PO (19:16)
[2025-08-26 20:18] LABS: Add Urine Microscopic? YES; Appearance Urine Clear (Clear); Glucose Urine UA Negative (Negative); Leukocyte Esterase Ur Negative LEU/UL (Negative); Nitrate Urine Negative (Negative); Non Pathogenic Casts 0-2; Specific Grav Ur 1.028 (1.001-1.035)
== END 2025-08-26 20:59 | disposition home or self-care (01) ==
PROVIDERS: Physician Assistant; Emergency Provider Emergency Medicine; PCP Emergency Medicine
DX: K29.00 Acute gastritis without bleeding (principal); F32.A Depression, unspecified; I10 Essential (primary) hypertension; Z87.891 Personal history of nicotine dependence; R00.1 Bradycardia, unspecified
CPT/HCPCS: 36415; 70450; 71275; 74174; 80053; 81001; 82077; 83690; 85025; 85610; 85730; 93005; 96374; 99284; A9270; J2470; Q9967